=== PATIENT | male | born 1955 | race American Indian/Alaskan Native ===

== ENCOUNTER 2019-10-23 10:42 | Emergency (ER) | payer MEDICARE ==
[2019-10-23] MEDS ORDERED: FUROSEMIDE 40 MG/4 ML INJ ONE (10:49)
[2019-10-23] MEDS ORDERED: FUROSEMIDE 40 MG/4 ML INJ IV ONE (11:10)
[2019-10-23] MEDS ORDERED: IPRATROPIUM/ALBUTEROL SULFATE 3 ML AMPUL.NEB IH ONE (11:24)
[2019-10-23 11:36] LABS: Basophils # (Auto) 0.1 K/mm3 (0.0-0.1); Basophils % (Auto) 0.6 % (0.0-1.8); Eosinophils # (Auto) 0.1 K/mm3 (0.0-0.4); Eosinophils % (Auto) 1.4 % (0.0-4.3); Hematocrit 29.6 % (35.5-45.6); Hemoglobin 9.6 gm/dl (11.8-15.2); Lymphocytes # (Auto) 1.1 K/mm3 (1.2-5.4); Lymphocytes % (Auto) 10.3 % (13.4-35.0); Mean Corpuscular HGB Conc 33 % (32-34); Mean Corpuscular Volume 91 fl (84-94); Monocytes # (Auto) 1.4 K/mm3 (0.0-0.8); Platelet Count 238 K/mm3 (140-440); Red Blood Count 3.26 M/mm3 (3.65-5.03); Red Cell Distribution Width 16.1 % (13.2-15.2)
[2019-10-23 11:38] LABS: INR 1.06 (0.87-1.13); Partial Thromboplastin Time 30.8 Sec. (24.2-36.6)
[2019-10-23] MEDS ORDERED: ACETAMINOPHEN 650 MG RECT SUPP PR ONE ×2 (11:53→12:14)
[2019-10-23 11:58] LABS: BUN/Creatinine Ratio 30; Blood Urea Nitrogen 24 mg/dL (9-20); Calcium 9.1 mg/dL (8.4-10.2); Hemolysis Index 37
[2019-10-23 11:59] LABS: Creatine Kinase MB 1.5 ng/mL (0.0-4.0)
[2019-10-23] MEDS ORDERED: NORepinephrine/NS 4 MG-250 ML 4 MG/250 ML BAG IV SCH (12:00)
[2019-10-23 12:01] LABS: Alanine Aminotransferase 58 units/L (7-56); Albumin 3.2 g/dL (3.9-5)
[2019-10-23 12:13] LABS: Bilirubin,Direct < 0.2 mg/dL (0-0.2)
[2019-10-23] MEDS ORDERED: ALBUTEROL 2.5 MG/3 ML NEBU IH PRN (12:23)
--- NOTE | 2019-10-23 12:23 | History and Physical Report ---
History of Present Illness Chief complaint: He is acting confused History of present illness: 64 YO Male Custodial Facility Resident with HTN, CaP, HLD, DM, Liver Disease, CKD, Paroxysmal Atrial Fib, Chronic Respiratory Failure S/P ICH with tracheostomy in place, Debility, Dysphagia presents to ED for evaluation. Patient was noted by correction staff to have difficulty breathing and in respiratory distress today. EMS was notified and upon arrival the patient was found to be in distress and subsequently transported to [facility] for further care and evaluation. Patient seen and evaluated in the emergency department. Lab and imaging studies reviewed. Patient was found to have systemic upon for inflammatory response syndrome complicated by acute on chronic hypoxemic respiratory failure with concomitant systolic congestive heart failure, and suspected metabolic encephalopathy. Patient admitted to ICU for medical stabilization due to high risk for cardiopulmonary decompensation. Cardiology team consulted in ED. Critical care team consulted in ED. Patient underwent CT scan of the head and was found to have a right basal ganglia hematoma measuring 6.5 x 3.0 x 5.0 with mass-effect and 7 mm right to left midline shift with effacement of the third ventricle. Upon discovery of intracranial hemorrhage the [facility] transfer line was contacted. Patient clinical findings discussed with neurosurgery ICU physician. Patient was deemed a candidate for transfer. Patient transfer form completed and patient scheduled for urgent transfer for neurosurgical intervention. Patient family at the bedside during exam and interview. Advanced care planning conducted in ED. Patient family acknowledges understanding and agreement with care plan. No prior admission for review. No medication listed at time of admission for reconciliation. No further history obtainable. Past History Past Medical History: atrial fib, cancer, diabetes, hypertension, hyperlipidemia Past Surgical History: Other (Unable to obtain) Social history: Family history: hypertension Medications and Allergies Allergies Allergy/AdvReac Type Severity Reaction Status Date / Time shrimp Allergy Unknown Verified 10/23/19 11:09 Active Meds: Active Medications Norepinephrine (Levophed Drip 4 Mg/Ns 250 Ml) 4 mg in 250 mls @ 7.5 mls/hr IV TITR VERONICA; Protocol Last Admin: 10/23/19 12:08 Dose: 2 mcg/min, 7.5 mls/hr Documented by: Review of Systems ROS unobtainable: due to endotracheal tube, due to mental status Exam - Constitutional Vitals: Temp Pulse Resp BP Pulse Ox 100.4 F H 70 20 133/108 100 10/23/19 11:36 10/23/19 11:36 10/23/19 11:36 10/23/19 11:36 10/23/19 11:36 General appearance: Present: mild distress - EENT ENT: hearing decreased - Neck Neck: Present: supple, normal ROM - Respiratory Respiratory effort: labored, stridor Respiratory: bilateral: diminished, rhonchi - Cardiovascular Rhythm: irregularly irregular - Extremities Extremities: pulses symmetrical, No edema Peripheral Pulses: within normal limits - Abdominal General gastrointestinal: Present: soft, non-tender, non-distended, normal bowel sounds Male genitourinary: Present: normal - Integumentary Integumentary: Present: clear, dry, clammy - Musculoskeletal Musculoskeletal: generalized weakness - Psychiatric Psychiatric: no appropriate mood/affect, no intact judgment & insight, no memory intact - Neurologic Neurologic: focal deficits, no moves all extremities, no gait normal Results - Labs CBC & Chem 7: 10/23/19 11:05 10/23/19 11:05 Labs: Abnormal lab results 10/23/19 10/23/19 10/23/19 Range/Units 11:05 11:05 11:05 RBC 3.26 L (3.65-5.03) M/mm3 Hgb 9.6 L (11.8-15.2) gm/dl Hct 29.6 L (35.5-45.6) % RDW 16.1 H (13.2-15.2) % Lymph % (Auto) 10.3 L (13.4-35.0) % [place] % (Auto) 13.0 H (0.0-7.3) % Lymph # 1.1 L (1.2-5.4) K/mm3 [place] # 1.4 H (0.0-0.8) K/mm3 Seg Neutrophils % 74.7 H (40.0-70.0) % Seg Neutrophils # 7.9 H (1.8-7.7) K/mm3 Chloride 96.8 L (98-107) mmol/L BUN 24 H (9-20) mg/dL Glucose 118 H (75-100) mg/dL AST 46 H (5-40) units/L ALT 58 H (7-56) units/L NT-Pro-B Natriuret Pep 1729 H (0-900) pg/mL Albumin 3.2 L (3.9-5) g/dL Assessment and Plan - Patient Problems (1) Acute and chronic respiratory failure Status: Acute Qualifiers: Respiratory failure complication: hypoxia Qualified Code(s): J96.21 - Acute and chronic respiratory failure with hypoxia Plan to address problem: Supplemental oxygen, nebulizer therapy, pulse oximetry, continue vent support, chest x ray, wean vent as tolerated, Critical care team consulted. The high probability of a clinically significant, sudden or life threatening deterioration of the [cardiac, respiratory, neuro] system(s) required my full and direct attention, intervention and personal management. The aggregate critical care time was [95] minutes. This time is in addition to time spent performing reported procedures but includes the following: [x] Data Review and interpretation [x] Patient assessment and monitoring of vital signs [x] Documentation [x] Medication orders and management (2) Systemic inflammatory response syndrome Status: Acute Plan to address problem: CBC, BMP, IV fluid resuscitation therapy, empiric IV antibiotic therapy, chest x-ray, urinalysis (3) Congestive heart failure Status: Acute Plan to address problem: Strict I's/O, monitor urine output every shift, daily weight, BNP, supplemental oxygen, afterload reduction, patient is pending transfer to [facility] due to late finding of intracranial hemorrhage on CT scan. (4) Hypertension Status: Acute Qualifiers: Hypertension type: essential hypertension Qualified Code(s): I10 - Essential (primary) hypertension Plan to address problem: Monitor BP q shift, supportive care, continue medical management. (5) Diabetes mellitus Status: Acute Plan to address problem: Consistent carbohydrate diet, sliding scale insulin therapy, hypoglycemia protocol. (6) Atrial fibrillation Status: Acute Qualifiers: Atrial fibrillation type: paroxysmal Qualified Code(s): I48.0 - Paroxysmal atrial fibrillation Plan to address problem: Continue current therapy, rate control, patient pending transfer to [facility]. (7) Advance care planning Status: Acute Plan to address problem: Patient is full code, disease education conducted at bedside., Patient family acknowledged understanding and agreement with care plan. +30 minutes. (8) DVT prophylaxis Status: Acute Plan to address problem: SCD to BLE while in bed,
--- NOTE | 2019-10-23 13:14 | Emergency Department Report ---
ED General Adult HPI - General Chief complaint: Dyspnea/Respdistress Stated complaint: JUANIS Time Seen by Provider: 10/23/19 11:10 Source: patient Mode of arrival: Stretcher Limitations: No Limitations - History of Present Illness Initial comments: This is a 64-year-old man who was purportedly admitted here recently per EMS. This does not appear to be the case as I do not find his EMR. He is transferred from the residential for evaluation of apparent dyspnea. There is no reported fever. He appears to have full resuscitative status. He has a tracheostomy. He is nonverbal. He presents with respiratory distress. He tracheostomy tube is in situ. No further information is available to me at this time. Review of the patient's transfer records indicate that he has a history of acute respiratory failure with hypoxia, no traumatic ICH, cerebral infarction, dysphagia, type 2 diabetes, prostate carcinoma, dyslipidemia, hypertension, chronic kidney disease, paroxysmal A. fib and tracheostomy. -: unknown Severity scale (0 -10): 0 - Related Data Allergies Allergy/AdvReac Type Severity Reaction Status Date / Time shrimp Allergy Unknown Verified 10/23/19 11:09 ED Review of Systems ROS: Stated complaint: JUANIS Other details as noted in HPI Comment: Unobtainable due to pts medical conditions ED Past Medical Hx - Past Medical History Previous Medical History?: Yes Hx Hypertension: Yes Hx Diabetes: Yes Hx Liver Disease: Yes - Surgical History Past Surgical History?: No - Social History Smoking Status: Unknown if ever smoked Other Social History: halfway resident. ED Physical Exam - General Limitations: Altered Mental Status, Physical Limitation General appearance: obtunded - Head Head exam: Present: atraumatic, normocephalic - Eye Eye exam: Absent: scleral icterus - ENT ENT exam: Present: mucous membranes dry - Neck Neck exam: Present: other (tracheostomy with apparent leak and secretions) - Respiratory Respiratory exam: Present: decreased breath sounds - Cardiovascular Cardiovascular Exam: Present: regular rate, normal rhythm, systolic murmur. Absent: diastolic murmur, rubs, gallop - GI/Abdominal GI/Abdominal exam: Present: soft, distended (somewhat), normal bowel sounds, other (feeding to place). Absent: tenderness, guarding, rebound, rigid - Extremities Exam Extremities exam: Present: pedal edema (leg edema) - Back Exam Back exam: Present: normal inspection (patient was log rolled nothing significant noted) - Neurological Exam Neurological exam: Present: other (obtunded, poorly responsive to stimuli) - Skin Skin exam: Present: other (no decubiti noted) ED Course Vital Signs 10/23/19 10/23/19 10/23/19 11:36 12:55 12:57 Temperature 100.4 F H Pulse Rate 70 118 H 80 Respiratory 20 16 Rate Blood Pressure 133/108 125/77 Blood Pressure 98/76 [Left] O2 Sat by Pulse 100 100 100 Oximetry 10/23/19 13:25 Temperature Pulse Rate 80 Respiratory 16 Rate Blood Pressure Blood Pressure 104/71 [Left] O2 Sat by Pulse 100 Oximetry - Reevaluation(s) Reevaluation #1: On arrival we assisted the patient's ventilations after suctioning with a bag v alve mask. His breath sounds continued to be persistent. Chest x-ray showed no acute process. His initial blood pressure was reasonably normal. He was given Lasix noting clear and frothy secretions from his tracheostomy. He was placed on a ventilator with a Mcdonald. This appeared to improve his ventilation. His work of breathing improved. He did not become more responsive however. An arterial blood gases are pending. The tracheostomy was irrigated by respiratory therapy. A central line was placed without difficulty on arrival. Bloods were drawn and given to the laboratory check to include blood cultures. Lactic acid level was found to be 1. After the preoperative central line was placed, the patient did develop hypotenson and was placed on the Levophed. The patient was seen by Dr. Grimes, the hospitalist, who will be providing further care. 10/23/19 13:22 10/23/19 13:[address] Grimes. Further care and management per Dr. Grimes. 10/23/19 13:40 - Central Line Placement Left Femoral Consent Obtained: emergent situation Time Out Performed: Yes Patient Placed on Monitor/Pulse Ox: Yes Prep: mask, gown, gloves, other Central Line Prep: Chlorhexidine scrub Ultrasound Used for Placement: No Central Line Lumen Inserted: triple Bloods Obtained for Lab: Yes Central Line Position: good blood return (dark nonpulsatile blood given to lab), sutured in place with 3-0 Dressing Applied: Tegaderm Post Procedure X-Ray: tip of catheter in good p Patient Tolerated Procedure: well Complications: none ED Medical Decision Making - Lab Data Result diagrams: 10/23/19 11:05 10/23/19 11:05 - EKG Data -: EKG Interpreted by Me EKG shows normal: sinus rhythm, axis, intervals, QRS complexes, ST-T waves Rate: normal - EKG Data Interpretation: nonspecific ST-T wave charles - Radiology Data Radiology results: image reviewed Critical Care Time: Yes Critical care time in (mins) excluding proc time.: 60 Critical care attestation.: If time is entered above; I have spent that time in minutes in the direct care of this critically ill patient, excluding procedure time. ED Disposition Clinical Impression: Respiratory distress, Tracheostomy malfunction Altered mental status Qualifiers: Altered mental status type: stupor Qualified Code(s): R40.1 - Stupor Disposition: DC-09 OP ADMIT IP TO THIS HOSP Is pt being admited?: Yes Does the pt Need Aspirin: No (pending CT) Condition: Stable
[2019-10-23 13:27] LABS: ABG Base Excess 5.6 mmol/L (-2.0-3.0); ABG HCO3 31.4 mmol/L (20.0-26.0); ABG Methemoglobin 0.5 % (0.0-1.5); ABG Oxygen Saturation 99.3 % (95.0-99.0); ABG PCO2 51.6 mm Hg; ABG PH 7.402 pH Units (7.350-7.450); ABG PO2 214.6 mm Hg (80.0-90.0)
[2019-10-23] MEDS ORDERED: CEFEPIME/NS 1 GM/100 ML 1 GM/100 ML BAG IV ONE (13:44)
--- NOTE | 2019-10-23 13:56 | XRay Report ---
CHEST 1 VIEW INDICATION: Difficulty in breathing. COMPARISON: None FINDINGS: Support devices: Tracheostomy is in good position. Heart: Mild cardiomegaly. Lungs/Pleura: Trace right pleural effusion is suspected, otherwise the lungs are clear. No pneumothor ax. Additional findings: None. IMPRESSION: Consider mild CHF. Signer Name: Stew Quintana Jr, MD Signed: 10/23/2019 1:51 PM Workstation Name: [id number]
--- NOTE | 2019-10-23 14:09 | Consultation ---
History of Present Illness Consult date: 10/23/19 Requesting physician: SIMONA WANG Reason for consult: other (Critical care) History of present illness: This is a 64-year-old man who was discharged from [facility] to [place] and has been brought to ED for evaluation of dyspnea. His fiancee is at the bedside. I remember the patient and his fiancee as I was involved in this care during his hospitlaization at [facility] - where he had been weaned from MVS. There is no reported fever. He presents with respiratory distress. He tracheostomy tube is in situ. Review of the patient's transfer records indicate that he has a history of acute respiratory failure with hypoxia, no traumatic ICH, cerebral infarction, dysphagia, type 2 diabetes, prostate carcinoma, dyslipidemia, hypertension, paroxysmal A. fib and tracheostomy. Patient seen and evaluated in the emergency department. Lab and imaging studies reviewed. Patient was found to have systemic upon for inflammatory response syndrome complicated by acute on chronic hypoxemic respiratory failure with concomitant systolic congestive heart failure, and suspected metabolic encephalopathy. Patient admitted to ICU for medical stabilization due to high risk for cardiopulmonary decompensation. Cardiology team consulted in ED. Critical care team consulted in ED. Patient underwent CT scan of the head and was found to have a right basal ganglia hematoma measuring 6.5 x 3.0 x 5.0 with mass-effect and 7 mm right to left midline shift with effacement of the third ventricle. Upon discovery of intracranial hemorrhage the [facility] transfer line was contacted by the ED staff. Patient will be transferred fro ongoing care Medications and Allergies Allergies Allergy/AdvReac Type Severity Reaction Status Date / Time shrimp Allergy Unknown Verified 10/23/19 11:09 Active Meds: Active Medications Albuterol (Proventil) 2.5 mg IH Q3HRT PRN PRN Reason: Shortness Of Breath Norepinephrine (Levophed Drip 4 Mg/Ns 250 Ml) 4 mg in 250 mls @ 7.5 mls/hr IV TITR VERONICA; Protocol Last Admin: 10/23/19 12:08 Dose: 2 mcg/min, 7.5 mls/hr Documented by: Cefepime HCl (Cefepime/Ns 1 Gm/100 Ml) 1 gm in 100 mls @ 200 mls/hr IV ONCE O NE; Protocol Stop: 10/23/19 14:13 Sodium Chloride (Sodium Chloride Flush Syringe 10 Ml) 10 ml IV BID VERONICA Sodium Chloride (Sodium Chloride Flush Syringe 10 Ml) 10 ml IV PRN PRN PRN Reason: LINE FLUSH Physical Examination Vital signs: Vital Signs Temp Pulse Resp BP Pulse Ox 100.4 F H 70 20 133/108 100 10/23/19 11:36 10/23/19 11:36 10/23/19 11:36 10/23/19 11:36 10/23/19 11:36 General appearance: alert, appears uncomfortable, other (mild respiratory distress s/p trach to MVS) Eyes: non-icteric Neck: supple, no lymphadenopathy, no JVD Effort: mildly labored Ascultation: Bilateral: diminished breath sounds, rhonchi Cardiovascular: regular rate and rhythm, other (S1,S2) Gastrointestinal: normoactive bowel sounds, soft, non-tender, other (PEG in place) Integumentary: normal Extremities: no cyanosis, edema unable to assess other (unable to assess) Results - Laboratory Findings CBC and BMP: 10/23/19 11:05 10/23/19 11:05 ABG ABG pH 7.402 pH Units (7.350-7.450) 10/23/19 13:20 ABG pCO2 51.6 mm Hg 10/23/19 13:20 ABG pO2 214.6 mm Hg (80.0-90.0) H 10/23/19 13:20 ABG O2 Saturation 99.3 % (95.0-99.0) H 10/23/19 13:20 PT/INR, D-dimer PT 13.9 Sec. (12.2-14.9) 10/23/19 11:05 INR 1.06 (0.87-1.13) 10/23/19 11:05 Abnormal lab findings: Abnormal Labs 10/23/19 10/23/19 10/23/19 11:05 11:05 11:05 RBC 3.26 L Hgb 9.6 L Hct 29.6 L RDW 16.1 H Lymph % (Auto) 10.3 L [place]le[place] % (Auto) 13.0 H Lymph # 1.1 L Schleicher # 1.4 H Seg Neutrophils % 74.7 H Seg Neutrophils # 7.9 H ABG pO2 ABG HCO3 ABG O2 Saturation ABG Base Excess ABG Hemoglobin Chloride 96.8 L BUN 24 H Glucose 118 H AST 46 H ALT 58 H NT-Pro-B Natriuret Pep 1729 H Albumin 3.2 L 10/23/19 13:20 RBC Hgb Hct RDW Lymph % (Auto) [place] % (Auto) Lymph # Schleicher # Seg Neutrophils % Seg Neutrophils # ABG pO2 214.6 H ABG HCO3 31.4 H ABG O2 Saturation 99.3 H ABG Base Excess 5.6 H ABG Hemoglobin 11.0 L Chloride BUN Glucose AST ALT NT-Pro-B Natriuret Pep Albumin - Diagnostic Findings Chest x-ray: image reviewed Assessment and Plan -Acute on chronic respiratory failure s/p tracheostomy -Acute right basal ganglia hematoma measuring 6.5 x 3.0 x 5.0 with mass-effect and 7 mm right to left midline shift with effacement of the third ventricle. -h/o ICH though to be hypertensive bleed -Oropharyngeal dysphagia s/p PEG Transfer to [facility] per ED discussions with Neurosurgical unit.
[2019-10-23] MEDS ORDERED: LIP THERAPY VASELINE TP PRN (14:16)
[2019-10-23] MEDS ORDERED: MINERAL OIL/PETROLATUM, WHITE OPHTH OINT 3.5 GM OU PRN (14:16)
[2019-10-23 14:20] LABS: Bilirubin,Urine NEG (Negative); Blood,Urine NEG (Negative); Color,Urine Yellow (Yellow); Protein,Urine <15 mg/dL mg/dL (Negative); Urobilinogen,Urine < 2.0 mg/dL (<2.0)
[2019-10-23] MEDS ORDERED: fentaNYL DRIP Premix 2,000 MCG/100 ML BAG IV SCH (15:00)
[2019-10-23] MEDS ORDERED: MEROPENEM/NS 500 MG/50 ML 500 MG/50 ML BAG IV SCH (15:00)
--- NOTE | 2019-10-23 15:58 | Cat Scan Report ---
CT HEAD WITHOUT CONTRAST INDICATION / CLINICAL INFORMATION: AMS. TECHNIQUE: All CT scans at this location are performed using CT dose reduction for ALARA by means of automated e xposure control. COMPARISON: None available. FINDINGS: HEMORRHAGE: There is a large (6.5 x 3.0 x 5.9 cm) hematoma centered in the right basal ganglia region . There is associated mass effect with effacement of cortical sulci over the convexity of the right c erebral hemisphere, effacement of the right sylvian fissure and effacement of the right lateral ventr icle. There are about 7 mm of right to left midline shift at the level of the septum pellucidum. Ther e is no evidence of uncal herniation. EXTRA-AXIAL SPACES: There is effacement of the right sylvian fissure, cortical sulci over the convexi ty of the right cerebral hemisphere is observed secondary to mass effect related to the large right b aparna ganglia hematoma. VENTRICULAR SYSTEM: There is subtotal effacement of the right lateral ventricle and third ventricle. There is dilatation of the left lateral ventricle. Dilatation of the temporal horn of the left latera l ventricle is noted. Left lateral ventricle may be trapped. There is a small amount of blood layerin g in the dependent portion of the atria and occipital horn of the left lateral ventricle. CEREBRAL PARENCHYMA: Large parenchymal hematoma in the right basal ganglia region is described above. There is moderate associated vasogenic edema. There is encephalomalacia along the medial aspect of t he left occipital lobe secondary to remote left posterior cerebral artery infarction. MIDLINE SHIFT OR HERNIATION: There are about 7 mm of right to left midline shift at the level of the septum pellucidum secondary to mass effect produced by the large right basal ganglia hematoma. CEREBELLUM / BRAINSTEM: Brainstem and cerebellum have an unremarkable appearance. INTRACRANIAL VESSELS:No abnormalities are identified on this noncontrast head CT. SELLA TURCICA: There is a mass expanding the sella turcica extending up into the suprasellar cistern consistent with pituitary macroadenoma. ORBITS: visualized portions of the orbits have an unremarkable appearance. SOFT TISSUES of HEAD: No significant abnormality. CALVARIUM: Evaluation of bone windows reveals no abnormalities. PARANASAL SINUSES / MASTOID AIR CELLS: Paranasal sinuses are free from inflammatory mucosal disease. Mastoid air cells are normally pneumatized. IMPRESSION: 1. Large (6.5 x 3.0 x 5.0 centimeter) right basal ganglia hematoma with intraventricular extension. 2. Mass effect with transvaginal seen herniation and trapping of the left lateral ventricle. 3. Remote left posterior communicating artery infarction. 4. Mass within the sella turcica likely reflecting the presence of a pituitary macroadenoma. Critical result: Time of discovery 1442 (Central standard time). Notification: I called a report of this study to Dr. Grimes at the [facility] em ergency department at about 1446 (Central standard time). The large size of the patient's right basal ganglia hematoma and associated mass effect were discussed. Signer Name: Kenneth Copeland MD Signed: 10/23/2019 3:54 PM Workstation Name: [id number]
[2019-10-23] MEDS ORDERED: VANCOMYCIN 2,000 MG in SODIUM CHLORIDE 0.9% 500 ML 500 ML IV ONE (16:00)
--- NOTE | 2019-10-23 16:01 | Cat Scan Report ---
CT ABDOMEN AND PELVIS WITH CONTRAST HISTORY: sepsis with feeding tube COMPARISON: None. TECHNIQUE: Axial CT images were obtained through the abdomen and pelvis after 100 cc of Omnipaque 300 intravenously. Sagittal and coronal reformatted images. All CT scans at this location are performed using CT dose reduction for ALARA by means of automated exposure control. FINDINGS: CT ABDOMEN: Lung Bases: Mild cardiomegaly, moderate pericardial effusion and small right pleural effusion are shaneka ntified. Liver: No significant abnormality. Biliary: No significant abnormality. Spleen: No significant abnormality. Unenlarged. Pancreas: No significant abnormality. Adrenals: No significant abnormality. Kidneys: No significant abnormality. Lymphatics: No lymphadenopathy. Vasculature: Mild aortic calcifications. No aneurysm. Bowel/Peritoneum: PEG tube appears in good position in the distal stomach. No evidence for bowel obst ruction or focal inflammation. The appendix is not confidently identified. CT PELVIS: : The bladder is decompressed with a Moody catheter. Radiotherapy beads are noted in the prostate b ed. Osseous Structures: Mild thoracolumbar spondylosis. Additional Findings: None IMPRESSION: No acute inflammatory process is identified. Mild cardiomegaly, pericardial effusion and small right pleural effusion. Signer Name: Stew Quintana Jr, MD Signed: 10/23/2019 3:57 PM Workstation Name: [id number]
[2019-10-23] MEDS ORDERED: NORepinephrine/NS 4 MG-250 ML 4 MG/250 ML BAG IV ONE (17:06)
[2019-10-23 17:08] VITALS: BP 151/90
[2019-10-24] MEDS ORDERED: VANCOMYCIN 2,000 MG in SODIUM CHLORIDE 0.9% 500 ML 500 ML IV SCH (04:00)
== END 2019-10-23 18:54 | disposition admitted as inpatient to this hospital (09) ==
LOC: ED 10:42 → CC1 12:23 → UNDOADMIN 12:23 → ED 18:54
DX: J95.00 Unspecified tracheostomy complication (principal); J96.21 Acute and chronic respiratory failure with hypoxia; E78.5 Hyperlipidemia, unspecified; I13.0 Hypertensive heart and chronic kidney disease with heart failure and stage 1 through stage 4 chronic kidney disease, or unspecified chronic kidney disease; E11.22 Type 2 diabetes mellitus with diabetic chronic kidney disease; N18.9 Chronic kidney disease, unspecified; I50.9 Heart failure, unspecified; R65.10 Systemic inflammatory response syndrome (SIRS) of non-infectious origin without acute organ dysfunction; I48.0 Paroxysmal atrial fibrillation; Z85.46 Personal history of malignant neoplasm of prostate; Z87.09 Personal history of other diseases of the respiratory system; Z91.013 Allergy to seafood; Z85.9 Personal history of malignant neoplasm, unspecified; Z71.89 Other specified counseling
CPT/HCPCS: 36415; 36600; 70450; 71045; 74176; 80048; 80076; 81001; 82140; 82550; 82553; 82803; 83735; 83880; 84145; 84484; 85025; 85610; 85730; 87040; 87070; 87076; 87086; 87186; 87205; 93005; 93010; 96365; 96366; 96368; 96375; 99285; J1940; J2185; J3370; J7040; 94002; 96367

== ENCOUNTER 2019-11-12 22:47 | Emergency (ER) | payer MEDICARE ==
[~2019-11-12 22:47] MED LIST: EPINEPHrine 1:10,000 1 MG/10 ML SYRINGE ONE; SODIUM BICARB 8.4% 50 MEQ/50 ML VIAL IV ONE
--- NOTE | 2019-11-12 23:02 | Emergency Department Report ---
ED CPR HPI - General Stated Complaint: CARDIAC ARREST Time Seen by Provider: 11/12/19 22:47 Source: EMS Mode of arrival: Stretcher Limitations: Altered Mental Status, Physical Limitation - History of Present Illness Initial Comments: Patient is a 64-year-old male that presents emergency room for cardiac arrest. Patient brought in by EMS. Report received from EMS. EMS states that the patient had a witnessed arrest at his skilled nursing. EMS is been working the patient for 30 minutes. Patient has had 4 rounds of epi and has been asystole on the monitor since. MD Complaint: collapsed during rest -: unknown Place: NH/SNF Bystander CPR Performed: No AED Applied by Bystander/Outside Laborer: No Initial Findings in the Field: unresponsive, no respirations, no pulse ROSC in the Field: No Associated Injuries: No Treatments Prior to Arrival: BMV, chest compressions, epinephrine mgs # - Related Data Allergies Allergy/AdvReac Type Severity Reaction Status Date / Time shrimp Allergy Unknown Verified 10/23/19 11:09 ED Review of Systems ROS: Stated complaint: CARDIAC ARREST Other details as noted in HPI Comment: Unobtainable due to pts medical conditions ED Past Medical Hx - Past Medical History Previous Medical History?: Yes Hx Hypertension: Yes Hx Diabetes: Yes Hx Liver Disease: Yes - Surgical History Past Surgical History?: Yes Additional Surgical History: Tracheostomy tube - Family History Family history: no significant - Social History Smoking Status: Unknown if ever smoked Substance Use Type: None ED Physical Exam - General Limitations: Altered Mental Status, Physical Limitation General appearance: other - Head Head exam: Present: atraumatic, normocephalic - Eye Eye exam: Present: other (Pupils fixed and dilated) - ENT ENT exam: Present: other (Patient has a midline trach) - Neck Neck exam: Present: normal inspection - Respiratory Respiratory exam: Present: normal lung sounds bilaterally - Cardiovascular Cardiovascular Exam: Present: other (No pulse noted) - GI/Abdominal GI/Abdominal exam: Present: soft, other (Percutaneous G-tube noted) - Rectal Rectal exam: Present: deferred - Extremities Exam Extremities exam: Present: normal inspection (Except for right lower extremity IO) - Neurological Exam Neurological exam: Present: altered - Skin Skin exam: Present: warm, dry, intact. Absent: rash ED Course Vital Signs 11/12/19 22:47 Pulse Rate 0 L Respiratory 0 L Rate Blood Pressure 00/00 [Right] - Reevaluation(s) Reevaluation #1: Patient arrived via EMS. Patient was transported to room 1 and placed on our bed. Patient placed on a desk monitor and shows asystole. CPR continued. Patient has a tracheostomy tube which is being bagged with a BVM. 11/12/19 22:46 Reevaluation #2: Resuscitation efforts were terminated due to no signs of life. No cardiac motion, no pulse, asystole on the monitor. Family support were given once family arrives. Code ran in accordance with ACLS guidelines. See code note. 11/12/19 22:52 Reevaluation #3: Family meeting done. All questions answered. Family support given. 11/12/19 23:55 ED Medical Decision Making - Medical Decision Making Patient is a 64-year-old male that presents emergency room for cardiac arrest. Patient was brought in from a local skilled nursing. Patient has a chronic trach and feeding tube and [place]. Patient was being bagged via the trach with a BVM. Patient brought in by EMS and report received from EMS. EMS did CPR for 30 minutes. Patient received multiple rounds of epi. Patient was given epi and bicarb immediately upon arrival and placed on our desk monitor. shelter monitor showed asystole and no pulse was noted upon arrival. CPR was continued. See code note. Code ran in accordance with ACLS guidelines. Family support given. Family meeting done. - Differential Diagnosis Cardiac arrest Critical Care Time: Yes Critical care time in (mins) excluding proc time.: 35 Critical care attestation.: If time is entered above; I have spent that time in minutes in the direct care of this critically ill patient, excluding procedure time. Critical Care Time: 35 minutes ED Disposition Clinical Impression: Cardiac arrest Disposition: DC-20 Is pt being admited?: No Does the pt Need Aspirin: No Condition: Undetermined Time of Disposition: 23:02
[2019-11-12 23:25] VITALS: BP 00/00
== END 2019-11-13 03:10 ==
LOC: ED 22:47
DX: I46.9 Cardiac arrest, cause unspecified (principal)
CPT/HCPCS: 92950; 99285; J0171